=== PATIENT | female | born 1965 | race Caucasian/White ===

== ENCOUNTER 2018-02-16 17:14 | Emergency (ER) | payer OTHER ==
--- NOTE | 2018-02-16 18:08 | ER ---
Nurse's Notes [facility] Name: Joann Winston Age: 53 yrs Sex: Female : 1965 Arrival Date: 02/16/2018 Time: 17:18 Bed 7 Private MD: Diagnosis: Contact with and (suspected) exposure to hazardous, chiefly nonmedicinal, chemicals Presentation: 02/16 17:45 Presenting complaint: Patient states: Pt reports she was told by her employer to come get checked out for a possible exposure to a chemical she could have unknowingly inhaled at work 6 days ago. Transition of care: patient was not received from another setting of care. Onset of symptoms was February 10, 2018. Risk Assessment: Do you want to hurt yourself or someone else? Patient reports no desire to harm self or others. Initial Sepsis Screen: Does the patient meet any 2 criteria? No. Patient's initial sepsis screen is negative. Does the patient have a suspected source of infection? No. Patient's initial sepsis screen is negative. Care prior to arrival: None. 17:45 Method Of Arrival: Ambulatory ss 17:45 Acuity: JULIO 5 ss Historical: - Allergies: 17:50 No Known Allergies; ss - Home Meds: 17:50 None [Active]; ss - PMHx: 17:50 None; ss - PSHx: 17:50 Tubal ligation; ss - Immunization history:: Adult Immunizations up to date. - Social history:: Smoking status: Patient/guardian denies using tobacco. - Ebola Screening: : Patient denies exposure to infectious person Patient denies travel to an Ebola-affected area in the 21 days before illness onset. Screenin:04 Abuse screen: Denies threats or abuse. Denies injuries from another. Nutritional ph screening: No deficits noted. Tuberculosis screening: No symptoms or risk factors identified. Fall Risk None identified. Assessment: 18:02 General: Appears in no apparent distress. comfortable, well groomed, Behavior is calm, ph cooperative, appropriate for age, Denies fever. Pain: Complains of pain in head. Neuro: Level of Consciousness is awake, alert, obeys commands, Oriented to person, place, time, situation, Reports headache Denies dizziness. Cardiovascular: Denies chest pain, nausea, shortness of breath, Capillary refill < 3 seconds Patient's skin is warm and dry. Respiratory: Airway is patent Respiratory effort is even, unlabored, Respiratory pattern is regular, symmetrical, Breath sounds are clear bilaterally. Denies cough, shortness of breath. GI: Patient currently denies abdominal pain, diarrhea, nausea, vomiting. Derm: Skin is intact, is healthy with good turgor, Skin is pink, warm \T\ dry. Musculoskeletal: Circulation, motion, and sensation intact. Range of motion: intact in all extremities. Vital Signs: 17:50 BP 152 / 93; Pulse 84; Resp 15; Temp 98.8(O); Pulse Ox 100% on R/A; Weight 74.39 kg; ss Height 5 ft. 4 in. (162.56 cm); Pain 3/10; 17:50 Body Mass Index 28.15 (74.39 kg, 162.56 cm) ED Course: 17:18 Patient arrived in ED. as 17:42 Chang Becker PA is PHCP. jr8 17:42 Ez Khoury MD is Attending Physician. [facility] 17:49 Triage completed. ss 17:50 Arm band placed on right wrist. 18:02 Nuvia Sheriff, RN is Primary Nurse. ph 18:04 Patient has correct armband on for positive identification. Bed in low position. Call ph light in reach. Side rails up X 1. Pulse ox on. NIBP on. 18:04 No provider procedures requiring assistance completed. Patient did not have IV access ph during this emergency room visit. Administered Medications: No medications were administered Outcome: 18:07 Discharge ordered by . [facility] 18:21 Discharged to home ambulatory. ph 18:21 Condition: good 18:21 Discharge instructions given to patient, Instructed on discharge instructions, follow up and referral plans. Demonstrated understanding of instructions, follow-up care. 18:21 Patient left the ED. ph Signatures: Kristen Lemus Shelby, RN RN Chang Becker PA PA [facility] Nuvia Sheriff RN RN ph
--- NOTE | 2018-02-16 18:08 | EDPHYS ---
Physician Documentation [facility] Name: Joann Winston Age: 53 yrs Sex: Female : 1965 Arrival Date: 02/16/2018 Time: 17:18 Bed 7 Private MD: ED Physician Ez Khoury HPI: 02/16 18:05 This 53 yrs old Female presents to ER via Ambulatory with complaints of jr8 Chemical Inhalation - 02/10. 18:05 Onset: The symptoms/episode began/occurred acutely, 5 day(s) ago. Severity of symptoms: jr8 At their worst the symptoms were very mild in the emergency department the symptoms are unchanged. The patient has not experienced similar symptoms in the past. The patient has not recently seen a physician. Stated that there facility was possibly exposed to hazardous chemical. Stated that she has had mild GI upset but no other s/s. Facility wanted them to be evaluated for exposure . Historical: - Allergies: 17:50 No Known Allergies; ss - Home Meds: 17:50 None [Active]; ss - PMHx: 17:50 None; ss - PSHx: 17:50 Tubal ligation; ss - Immunization history:: Adult Immunizations up to date. - Social history:: Smoking status: Patient/guardian denies using tobacco. - Ebola Screening: : Patient denies exposure to infectious person Patient denies travel to an Ebola-affected area in the 21 days before illness onset. ROS: 18:05 Eyes: Negative for injury, pain, redness, and discharge, ENT: Negative for injury, jr8 pain, and discharge, Neck: Negative for injury, pain, and swelling, Cardiovascular: Negative for chest pain, palpitations, and edema, Respiratory: Negative for shortness of breath, cough, wheezing, and pleuritic chest pain, Back: Negative for injury and pain, MS/Extremity: Negative for injury and deformity, Skin: Negative for injury, rash, and discoloration, Neuro: Negative for headache, weakness, numbness, tingling, and seizure. 18:05 Abdomen/GI: Positive for diarrhea, abdominal cramps. Exam: 18:05 Head/Face: Normocephalic, atraumatic. Eyes: Pupils equal round and reactive to light, jr8 extra-ocular motions intact. Lids and lashes normal. Conjunctiva and sclera are non-icteric and not injected. Cornea within normal limits. Periorbital areas with no swelling, redness, or edema. ENT: Nares patent. No nasal discharge, no septal abnormalities noted. Tympanic membranes are normal and external auditory canals are clear. Oropharynx with no redness, swelling, or masses, exudates, or evidence of obstruction, uvula midline. Mucous membranes moist. Neck: Trachea midline, no thyromegaly or masses palpated, and no cervical lymphadenopathy. Supple, full range of motion without nuchal rigidity, or vertebral point tenderness. No Meningismus. Chest/axilla: Normal chest wall appearance and motion. Nontender with no deformity. No lesions are appreciated. Cardiovascular: Regular rate and rhythm with a normal S1 and S2. No gallops, murmurs, or rubs. Normal PMI, no JVD. No pulse deficits. Respiratory: Lungs have equal breath sounds bilaterally, clear to auscultation and percussion. No rales, rhonchi or wheezes noted. No increased work of breathing, no retractions or nasal flaring. Abdomen/GI: Soft, non-tender, with normal bowel sounds. No distension or tympany. No guarding or rebound. No evidence of tenderness throughout. Back: No spinal tenderness. No costovertebral tenderness. Full range of motion. Skin: Warm, dry with normal turgor. Normal color with no rashes, no lesions, and no evidence of cellulitis. MS/ Extremity: Pulses equal, no cyanosis. Neurovascular intact. Full, normal range of motion. Neuro: Awake and alert, GCS 15, oriented to person, place, time, and situation. Cranial nerves II-XII grossly intact. Motor strength 5/5 in all extremities. Sensory grossly intact. Cerebellar exam normal. Normal gait. Vital Signs: 17:50 BP 152 / 93; Pulse 84; Resp 15; Temp 98.8(O); Pulse Ox 100% on R/A; Weight 74.39 kg; ss Height 5 ft. 4 in. (162.56 cm); Pain 3/10; 17:50 Body Mass Index 28.15 (74.39 kg, 162.56 cm) ss MDM: 17:42 Patient medically screened. [facility] 18:05 Data reviewed: vital signs, nurses notes, and as a result, I will discharge patient. 8 Data interpreted: Pulse oximetry: on room air is 100 %. Interpretation: normal. Counseling: I had a detailed discussion with the patient and/or guardian regarding: the historical points, exam findings, and any diagnostic results supporting the discharge/admit diagnosis, the need for outpatient follow up, a family practitioner, to return to the emergency department if symptoms worsen or persist or if there are any questions or concerns that arise at home. ED course: Discussed with patient that her physical exam does not reveal anything acute. Vitals are within normal limits. Would advise to continue to watch for any other symptoms. Patient and rest of staff could not identify chemical that they were exposed to. Explained to her if she were to worsen to come back. Otherwise to f/u with PCP. . Administered Medications: No medications were administered Disposition: 18:38 Co-signature as Attending Physician, Ez Khoury MD. rn Disposition: 02/16/18 18:07 Discharged to Home. Impression: Contact with and (suspected) exposure to hazardous, chiefly nonmedicinal, chemicals. - Condition is Stable. - Medication Reconciliation Form, Thank You Letter, Antibiotic Education, Prescription Opioid Use form. - Follow up: Private Physician; When: 5 - 6 days; Reason: Recheck today's complaints, Continuance of care, Re-evaluation by your physician. - Problem is new. - Symptoms have improved. Signatures: Ez Khoury MD MD rn Smirch, Shelby, RN RN ss Roszak, Josh, PA PA jr8 Nuvia Sheriff RN RN ph Corrections: (The following items were deleted from the chart) 18:21 18:07 02/16/2018 18:07 Discharged to Home. Impression: Contact with and (suspected) ph exposure to hazardous, chiefly nonmedicinal, chemicals. Condition is Stable. Forms are Medication Reconciliation Form, Thank You Letter, Antibiotic Education, Prescription Opioid Use. Follow up: Private Physician; When: 5 - 6 days; Reason: Recheck today's complaints, Continuance of care, Re-evaluation by your physician. Problem is new. Symptoms have improved. jr8
== END 2018-02-16 18:21 | disposition home or self-care (01) ==
LOC: ER 17:14
DX: K30 Functional dyspepsia (principal); Z77.098 Contact with and (suspected) exposure to other hazardous, chiefly nonmedicinal, chemicals
CPT/HCPCS: 99283